=== PATIENT | female | born 1955 | race Caucasian/White ===

== ENCOUNTER 2019-01-02 11:25 | Emergency (ER) | payer OTHER ==
[~2019-01-02] VITALS: Ht 157.5 cm; Wt 107.5 kg
[~2019-01-02 11:25] MED LIST: AVAPRO300 MG; BYSTOLIC5 MG; FIRST-PROGESTER25 MG; NATURE-THROI16.25 MG; PROBIOTIC1 EACH; TESTIM5 GM; VITAMIN D33000 UNIT; WESTHROID; [UNRECOGNIZED DRUG - OTHER]
--- OUTSIDE RECORDS SUMMARY | 2019-01-02 11:29 | XMS REPORT | Encounter Summary ---
Author Organization Unknown Address [address] [place] [address] Phone [phone] Reason for Visit Medical Complaint Instructions 1. Serous otitis media cefdinir 300 mg capsule Nasonex 50 mcg/actuation [place] 2. Vertigo Discussion Note: None recorded. Patient educational handouts: No information available. Plan of Care Patient Instructions take medication as directed. follow up pcp Reminders Provider Appointments None recorded. Lab None recorded. Referral None recorded. Procedures None recorded. Surgeries None recorded. Imaging None recorded. Medications Name Start Date Bystolic 5 mg tablet cefdinir 300 mg capsule Take 2 capsules every day by oral route for 10 days. irbesartan 300 mg tablet Nasonex 50 mcg/actuation [place] 2 sprays every day by intranasal route for 10 days. Medications Administered None recorded. Vitals Height Weight BMI Blood Pressure 5 ft 2.5 in 235 lbs 42.3 122/78 Lab Results None recorded. Allergies Code Code System Name Reaction Severity Onset 1191 RxNorm Aspirin Hallucinations 7052 RxNorm Morphine Chest Pain 992668 RxNorm Valium Confusion Problems Name Status Onset Date Source Influenza Due to Influenza Virus, Type B Active Encounter Procedures Date Name Performed by Hysterectomy Information not available Vaccine List None recorded. Social History Smoking Status Never Smoker Past Encounters 03/05/2017 Serous Otitis Media; Vertigo Ivan Noguera [facility]-C: [address] [place] [address], Ph. History of Present Illness Headache Reported By: Patient HPI: Quality: ; dizzy. Severity: mild. Duration: intermittent. Onset/Timing: abrupt onset. Context: not related to trauma. Associated Symptoms: no fever/chills, no muscle aches, no headache, no vomiting, no sensitivity to light, tearing/watery eyes, no confusion, no slurred speech, no preceeding aura, no double vision, normal feeling/sensation, no motor paralysis, no sleep disturbances, no nosebleeds, no hoarseness, no sore throat, no hearing loss, dizziness Review of Systems:ROS as noted in the HPI Review of Systems Basic Reported By: Patient Physical Exam Adult Basic, Adult Female Complete Reported By: Patient Constitutional: General Appearance: morbidly obese. Level of Distress: NAD. Ambulation: ambulating normally Psychiatric: Mental Status: active and alert Eyes: Lids and Conjunctivae: non-injected, no discharge Wjl-Jyou-Xtxah-Throat: Ears: middle ear fluid. Hearing: no hearing loss. Nose: no lesions on external nose, nares patent, no septal deviation, nasal passages clear, no sinus tenderness, no nasal discharge. Lips, Teeth, and Gums: no mouth or lip ulcers. Oropharynx: moist mucous membranes, no erythema, no exudates, tonsils not enlarged Neck: Neck: trachea midline. Lymph Nodes: no cervical LAD Lungs: Respiratory effort: no dyspnea, no tachypnea, no use of accessory muscles, no intercostal retractions. Auscultation: breath sounds normal Cardiovascular: Heart Auscultation: RRR, no murmurs
--- OUTSIDE RECORDS SUMMARY | 2019-01-02 11:29 | XMS REPORT | Encounter Summary ---
Author Organization Unknown Address [address] [place] [address] Phone [phone] Reason for Visit Medical Complaint Instructions 1. Serous otitis media cefdinir 300 mg capsule 2. Vertigo Discussion Note: None recorded. Patient [...] for 10 days. irbesartan 300 mg tablet Medications Administered None recorded. Vitals Height Weight BMI Blood Pressure 5 ft 2.5 in 235 lbs 42.3 122/78 Lab Results None recorded. Allergies Code Code System Name Reaction Severity Onset 1191 RxNorm Aspirin Hallucinations 7052 RxNorm Morphine Chest Pain 679367 RxNorm Valium Confusion Problems Name Status Onset Date Source Influenza Due to Influenza Virus, Type B Active Encounter Procedures Date Name Performed by Hysterectomy Information not available Vaccine List None recorded. Social History Smoking Status Never Smoker Past Encounters 03/05/2017 Serous Otitis Media; Vertigo Ivan Noguera, [facility]: [address] [place] [address], Ph. History of Present Illness Headache Reported [...] Eyes: Lids and Conjunctivae: non-injected, no discharge Jaq-Buzw-Ndzqw-Throat: Ears: middle ear fluid. Hearing: no hearing [...]
--- OUTSIDE RECORDS SUMMARY | 2019-01-02 11:29 | XMS REPORT | Encounter Summary ---
Author Organization Unknown Address [address] [place] [address] Phone [phone] Reason for Visit Medical Complaint Instructions 1. Serous otitis media cefdinir 300 mg capsule Nasonex 50 mcg/actuation [place] 2. Vertigo Discussion Note: None recorded. Patient [...] irbesartan 300 mg tablet Nasonex 50 mcg/actuation [place] 2 sprays every day by intranasal route for 10 days. Medications Administered None recorded. Vitals Height Weight BMI Blood Pressure 5 ft 2.5 in 235 lbs 42.3 122/78 Lab Results None recorded. Allergies Code Code System Name Reaction Severity Onset 1191 RxNorm Aspirin Hallucinations 7052 RxNorm Morphine Chest Pain 915317 RxNorm Valium Confusion Problems Name Status Onset Date Source Influenza Due to Influenza Virus, Type B Active Encounter Procedures Date Name Performed by Hysterectomy Information not available Vaccine List None recorded. Social History Smoking Status Never Smoker Past Encounters 03/05/2017 Serous Otitis Media; Vertigo Ivan Noguera [facility]: [address] [place] [address], Ph. History of Present Illness Headache Reported [...] Eyes: Lids and Conjunctivae: non-injected, no discharge Xew-Gypz-Ficaw-Throat: Ears: middle ear fluid. Hearing: no hearing [...] normal Cardiovascular: Heart Auscultation: RRR, no murmurs Neurologic: Gait and Station: normal gait, normal station. Cranial Nerves: grossly intact
--- OUTSIDE RECORDS SUMMARY | 2019-01-02 11:29 | XMS REPORT | Continuity of Care Document ---
Author Author [facility] Address Unknown Phone Unavailable Problems Problem Status Onset Date Classification Date Reported Comments Source Serous otitis media 03/05/2017 Diagnosis 03/05/2017 [facility] Vertigo 03/05/2017 Diagnosis 03/05/2017 [facility] Influenza Due to Influenza Virus, Type B Problem 03/05/2017 [facility] Medications Medication Details Route Status Patient Instructions Ordering Provider Order Date Source nebivolol 5 MG Oral Tablet [Bystolic] Bystolic 5 mg tablet Active [facility] cefdinir 300 MG Oral Capsule cefdinir 300 mg capsule Take 2 capsules every day by oral route for 10 days. Active [facility] irbesartan 300 MG Oral Tablet irbesartan 300 mg tablet Active [facility] mometasone furoate 0.05 MG/ACTUAT Metered Dose Nasal [place] [Nasonex] Nasonex 50 mcg/actuation [place] 2 sprays every day by intranasal route for 10 days. Active [facility] Allergies, Adverse Reactions, Alerts Substance Category Reaction Severity Reaction type Status Date Reported Comments Source Aspirin Hallucinations Allergy to substance 12/29/2015 [facility] Morphine Chest pain Allergy to substance 12/29/2015 [facility] Valium Confusion Allergy to substance 12/29/2015 [facility] Immunizations Immunization Date Given Site Status Last Updated Comments Source Results Order Name Results Value Reference Range Date Interpretation Comments Source Vital Signs Vital Sign Value Date Comments Source Diastolic (mm Hg) 78 03/05/2017 [facility] Height 62.5 03/05/2017 [facility] Systolic (mm Hg) 122 03/05/2017 [facility] Weight 235 03/05/2017 [facility] Encounters Location Location Details Encounter Type Encounter Number Reason For Visit Attending Provider ADM Date DC Date Status Source [place] - [facility] - [id number] Noguera, [employer]-C: [address] [place] [address], Ph. [phone] [id number] Ivan Noguera 03/05/2017 [facility] [place] - [facility] - [id number] Ivan Noguera, [employer]-C: [address] [place] [address], Ph. [id number] Ivan Noguera 03/05/2017 [facility] [place] - [facility] - [id number] Ivan Noguera, [employer]-C: [address] [place] [address], Ph. [id number] Ivan Noguera 03/05/2017 [facility] Procedures Procedure Code Date Perfomer Comments Source Hysterectomy [facility]
[2019-01-02] MEDS ORDERED: DEXAMETHASONE SOD PHOS 10 MG/1 ML VIAL IM ONE (13:00)
[2019-01-02] MEDS ORDERED: TRAMADOL HCL 50 MG TAB PO ONE (13:00)
--- NOTE | 2019-01-02 13:29 | NUR ---
PT RESTING, FAMILY AT BEDSIDE, PT VITAL SIGNS STABLE. PT STATED PAIN IS "EASING UP" PT STATED PAIN 05/20
--- NOTE | 2019-01-02 13:37 | Diagnostic Imaging Report ---
Exam: Lumbar spine 2 views History: Sharp low back pain Comparison: None. Findings: There are 5 nonrib-bearing lumbar vertebral bodies. No acute, displaced fracture or subluxation. Advanced bilateral facet arthropathy at L5-S1. Mild multilevel disc space narrowing and marginal osteophytosis affecting the lower thoracic spine as well as L1-L2. Sacroiliac joints are intact. Sacral foramina are normal superiorly. The inferior sacral body and coccyx are obscured by rectal gas and stool. Impression: Lower thoracic and upper lumbar degenerative disc changes. L5-S1 facet joint arthropathy. Signed by: Dr. Ernesto Valderrama M.D. on 01/02/2019 1:34 PM
[2019-01-02] MEDS ORDERED: ULTRAM50 MG PO (14:47)
[2019-01-02] MEDS ORDERED: CYCLOBENZAPRINE10 MG PO (14:50)
[2019-01-02 15:25] VITALS: BP 129/82
== END 2019-01-02 15:00 | disposition home or self-care (01) ==
LOC: FSED 11:25
DX: M54.5 Low back pain (principal); M46.1 Sacroiliitis, not elsewhere classified; M62.838 Other muscle spasm; I10 Essential (primary) hypertension; J45.41 Moderate persistent asthma with (acute) exacerbation
CPT/HCPCS: 72100; 99283; J1100